=== PATIENT | male | born 1985 | race Caucasian/White ===

== ENCOUNTER 2024-08-22 12:37 | Emergency (ER) | payer OTHER ==
[2024-08-22 12:47] VITALS: RESP 18
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
[2024-08-22] MEDS: DIPH,PERTUS(ACELL)TETVAC-LF 0.5 ML VIAL IM ONE (13:01)
[2024-08-22] MEDS: TOPICAL SKIN ADHESIVE 1 EACH AMP TOPICAL ONE (13:03)
[2024-08-22] MEDS: ACETAMINOPHEN TAB 325 MG TAB PO STA (13:09)
[2024-08-22 13:32] VITALS: BP 124/70; PULSE 65; TEMP 98.1
== END 2024-08-22 13:42 | disposition home or self-care (01) ==
LOC: EC 12:37
DX: S01.111A Laceration without foreign body of right eyelid and periocular area, initial encounter (principal); F17.200 Nicotine dependence, unspecified, uncomplicated; Z23 Encounter for immunization; Y04.0XXA Assault by unarmed brawl or fight, initial encounter
CPT/HCPCS: 12001; 90471; 90715; 99284